=== PATIENT | female | born 1960 ===

== ENCOUNTER 2023-05-29 07:57 | Outpatient (RCR) | payer OTHER, SELFPAY | END 2023-05-29 23:59 | disposition home or self-care (01) | LOC: RPT 07:57 | PROVIDERS: ATTENDING PHYSICIAN Obstetrics & Gynecology | DX: K59.00 Constipation, unspecified (principal); N39.8 Other specified disorders of urinary system; M62.89 Other specified disorders of muscle; R10.2 Pelvic and perineal pain; Z73.6 Limitation of activities due to disability; R35.1 Nocturia; R35.0 Frequency of micturition | CPT/HCPCS: 97110; 97112; 97140; 97163; 97530 ==

== ENCOUNTER 2023-07-01 07:48 | Outpatient (RCR) | payer OTHER, SELFPAY | END 2023-07-01 23:59 | disposition home or self-care (01) | LOC: RPT 07:48 | PROVIDERS: ATTENDING PHYSICIAN Obstetrics & Gynecology | DX: K59.00 Constipation, unspecified (principal); N39.8 Other specified disorders of urinary system; M62.89 Other specified disorders of muscle; R10.2 Pelvic and perineal pain; Z73.6 Limitation of activities due to disability; R35.1 Nocturia; N81.4 Uterovaginal prolapse, unspecified; N39.3 Stress incontinence (female) (male); R35.0 Frequency of micturition | CPT/HCPCS: 97110; 97112; 97140; 97530 ==

== ENCOUNTER → 2023-07-07 10:21 | Outpatient (REF) | payer OTHER, SELFPAY | LOC: HWRAD 10:21 | PROVIDERS: ATTENDING PHYSICIAN Nurse Practitioner; FAMILY PHYSICIAN Internal Medicine | DX: Z12.31 Encounter for screening mammogram for malignant neoplasm of breast (principal); Z13.820 Encounter for screening for osteoporosis; M81.0 Age-related osteoporosis without current pathological fracture | CPT/HCPCS: 77063; 77067; 77080 ==

== ENCOUNTER 2023-07-28 13:06 | Outpatient (RCR) | payer OTHER, SELFPAY | END 2023-07-28 23:59 | disposition home or self-care (01) | LOC: RPT 13:06 | PROVIDERS: ATTENDING PHYSICIAN Obstetrics & Gynecology | DX: K59.00 Constipation, unspecified (principal); N39.8 Other specified disorders of urinary system; M62.89 Other specified disorders of muscle; R10.2 Pelvic and perineal pain; Z73.6 Limitation of activities due to disability; R35.1 Nocturia | CPT/HCPCS: 97110; 97140; 97530 ==

== ENCOUNTER 2023-08-21 13:02 | Outpatient (RCR) | payer OTHER, SELFPAY | END 2023-08-21 23:59 | disposition home or self-care (01) | LOC: RPT 13:02 | PROVIDERS: ATTENDING PHYSICIAN Obstetrics & Gynecology | DX: K59.00 Constipation, unspecified (principal); N39.8 Other specified disorders of urinary system; M62.89 Other specified disorders of muscle; R10.2 Pelvic and perineal pain; Z73.6 Limitation of activities due to disability; R35.1 Nocturia | CPT/HCPCS: 97110; 97140; 97530 ==

== ENCOUNTER 2023-09-29 09:08 | Outpatient (RCR) | payer OTHER, SELFPAY | END 2023-09-29 23:59 | disposition home or self-care (01) | LOC: RPT 09:08 | PROVIDERS: ATTENDING PHYSICIAN Obstetrics & Gynecology | DX: K59.00 Constipation, unspecified (principal); N39.8 Other specified disorders of urinary system; R10.2 Pelvic and perineal pain; R35.1 Nocturia; Z73.6 Limitation of activities due to disability | CPT/HCPCS: 97110; 97112; 97140; 97530 ==

== ENCOUNTER 2023-10-27 15:06 | Outpatient (RCR) | payer OTHER, SELFPAY | END 2023-10-27 23:59 | disposition home or self-care (01) | LOC: RPT 15:06 | PROVIDERS: ATTENDING PHYSICIAN Obstetrics & Gynecology | DX: K59.00 Constipation, unspecified (principal); N39.8 Other specified disorders of urinary system; M62.89 Other specified disorders of muscle; R10.2 Pelvic and perineal pain; Z73.6 Limitation of activities due to disability; R35.1 Nocturia | CPT/HCPCS: 97110; 97140; 97530 ==

== ENCOUNTER 2023-12-01 14:48 | Outpatient (RCR) | payer OTHER, SELFPAY | END 2023-12-01 23:59 | disposition home or self-care (01) | LOC: RPT 14:48 | PROVIDERS: ATTENDING PHYSICIAN Obstetrics & Gynecology | DX: K59.00 Constipation, unspecified (principal); N39.8 Other specified disorders of urinary system; M62.89 Other specified disorders of muscle; R10.2 Pelvic and perineal pain; R35.1 Nocturia | CPT/HCPCS: 97014; 97112; 97140; 97530 ==

== ENCOUNTER 2023-12-15 15:06 | Outpatient (RCR) | payer OTHER, SELFPAY | END 2023-12-15 23:59 | disposition home or self-care (01) | LOC: RPT 15:06 | PROVIDERS: ATTENDING PHYSICIAN Obstetrics & Gynecology | DX: K59.00 Constipation, unspecified (principal); N39.8 Other specified disorders of urinary system; M62.89 Other specified disorders of muscle; R10.2 Pelvic and perineal pain; R35.1 Nocturia | CPT/HCPCS: 97014; 97112; 97140; 97530 ==

== ENCOUNTER 2024-01-26 07:31 | Outpatient (RCR) | payer OTHER, SELFPAY | END 2024-01-26 23:59 | disposition home or self-care (01) | LOC: RPT 07:31 | PROVIDERS: ATTENDING PHYSICIAN Obstetrics & Gynecology | DX: K59.00 Constipation, unspecified (principal); N39.8 Other specified disorders of urinary system; M62.89 Other specified disorders of muscle; R10.2 Pelvic and perineal pain; Z73.6 Limitation of activities due to disability; R35.1 Nocturia | CPT/HCPCS: 97010; 97014; 97110; 97112; 97140; 97530 ==

== ENCOUNTER 2024-02-23 10:59 | Outpatient (RCR) | payer OTHER, SELFPAY | END 2024-02-23 23:59 | disposition home or self-care (01) | LOC: RPT 10:59 | PROVIDERS: ATTENDING PHYSICIAN Obstetrics & Gynecology | DX: K59.00 Constipation, unspecified (principal); N39.8 Other specified disorders of urinary system; M62.89 Other specified disorders of muscle; R10.2 Pelvic and perineal pain; Z73.6 Limitation of activities due to disability; R35.1 Nocturia | CPT/HCPCS: 97010; 97014; 97112; 97140; 97530 ==

== ENCOUNTER 2024-03-22 10:51 | Outpatient (RCR) | payer OTHER, SELFPAY | END 2024-03-22 23:59 | disposition home or self-care (01) | LOC: RPT 10:51 | PROVIDERS: ATTENDING PHYSICIAN Obstetrics & Gynecology | DX: K59.00 Constipation, unspecified (principal); N39.8 Other specified disorders of urinary system; M62.89 Other specified disorders of muscle; R10.2 Pelvic and perineal pain; Z73.6 Limitation of activities due to disability; R35.1 Nocturia | CPT/HCPCS: 97110; 97112; 97140; 97530 ==

== ENCOUNTER 2024-04-19 10:59 | Outpatient (RCR) | payer OTHER, SELFPAY | END 2024-04-19 23:59 | disposition home or self-care (01) | LOC: RPT 10:59 | PROVIDERS: ATTENDING PHYSICIAN Obstetrics & Gynecology | DX: K59.00 Constipation, unspecified (principal); N39.8 Other specified disorders of urinary system; M62.89 Other specified disorders of muscle; R10.2 Pelvic and perineal pain; Z73.6 Limitation of activities due to disability; R35.1 Nocturia | CPT/HCPCS: 97010; 97110; 97530 ==

== ENCOUNTER 2024-04-20 06:16 | Day surgery (SDC) | payer OTHER, SELFPAY | END 2024-04-20 13:30 | disposition home or self-care (01) | LOC: GI 06:16 | PROVIDERS: ATTENDING PHYSICIAN Surgery | DX: Z12.11 Encounter for screening for malignant neoplasm of colon (principal); K64.9 Unspecified hemorrhoids | CPT/HCPCS: G0121 ==

== ENCOUNTER 2024-05-10 09:59 | Outpatient (RCR) | payer OTHER, SELFPAY | END 2024-05-10 23:59 | disposition home or self-care (01) | LOC: RPT 09:59 | PROVIDERS: ATTENDING PHYSICIAN Obstetrics & Gynecology | DX: K59.00 Constipation, unspecified (principal); N39.8 Other specified disorders of urinary system; M62.89 Other specified disorders of muscle; R10.2 Pelvic and perineal pain; Z73.6 Limitation of activities due to disability; R35.1 Nocturia | CPT/HCPCS: 97110; 97140; 97530 ==